=== PATIENT | female | born 1970 | race Caucasian/White ===

== ENCOUNTER → 2025-01-11 | Outpatient (CLI) | payer OTHER, SELFPAY ==
--- OUTSIDE RECORDS SUMMARY | 2024-11-29 10:57 | XMS RPT_ITS ---
Author Name Auto Generated Organization OHIP Care Team Providers Care Plateman Name Role Phone ANDREI SOTO Primary Care Unavailable VACCANDREI KUNZ Consulting Unavailable VACCANDREI KUNZ Attending Unavailable VACCANDREI KUNZ Admitting Unavailable PROVIDER, UNKNOWN Consulting Unavailable PROVIDER, UNKNOWN Consulting Unavailable PROVIDER, UNKNOWN Consulting Unavailable KRISTYK TOSIN M Attending Unavailable VACCARIELLO, ANDREI Consulting Unavailable ROZUK TOSIN M Admitting Unavailable ROZUK, TOSIN M Primary Care Unavailable PROVIDER, UNKNOWN Consulting Unavailable PROVIDER, UNKNOWN Consulting Unavailable PROVIDER, UNKNOWN Consulting Unavailable VACCJOAQUINA ANDREI Primary Care Unavailable VACCARIPALMA, ANDREI Consulting Unavailable VACCJOAQUINA, ANDREI Attending Unavailable VACCARIELLO, ANDREI Admitting Unavailable PROVIDER, UNKNOWN Consulting Unavailable PROVIDER, UNKNOWN Consulting Unavailable PROVIDER, UNKNOWN Consulting Unavailable [facility] Attending Unavailable PROBLEMS No Problem Records Found PROCEDURES No Procedure Records Found RESULTS ALBUMIN, RANDOM URINE W/CREATININE Collected: 06/29/2024 9:09 AM Status: F Source: [employer] TYPE CODE TESTS RESULT OUT OF RANGE REFERENCE UNITS LAB [id number] CREATININE, RANDOM URINE 269 Normal 20-275 mg/dL LAB [id number] ALBUMIN, URINE 1.2 Normal See Note: mg/dL Result Comment: Reference Ra nge: Reference Range Not established LAB [id number] ALBUMIN/CRE ATININE RATIO, RANDOM URINE 4 Normal <30 mg/g creat Result Comment: The ADA defines abnormalities in albumin excretion as follows: Albuminuria Category Result (mg/g creatinine) Normal to Mildly increased <30 Moderately increased 30-299 Severely increased > OR = 300 The ADA recommends that at least two of three specimens collected within a 3-6 month period be abnormal before considering a patient to be within a diagnostic category. Performed By: #### [id number] #### [facility] [address], [address] [place] [address] Loader Demolder: Abundio Jimenez MD LIPID PANEL, STANDARD Collected: 05/17/2024 9:17 AM Status: F Source: [employer] TYPE CODE TESTS RESULT OUT OF RANGE REFERENCE UNITS LAB [id number] CHOLESTEROL, TOTAL 185 Normal <200 mg/dL LAB [id number] HDL CHOLESTEROL 57 Normal > OR = 50 mg/dL LAB [id number] TRIGLYCERIDES 103 Normal <150 mg/dL LAB [id number] LDL-CHOLESTEROL 108 High mg/dL (calc) Result Comment: Reference ra nge: <100 Desirable range <100 mg/dL for primary prevention; <70 mg/dL for patients with CHD or diabetic patients with > or = 2 CHD risk factors. LDL-C is now calculated using the Andrez-Gudelia calculation, which is a validated novel method providing better accuracy than the Friedewald equation in the estimation of LDL-C. Andrez REYES et al. GENET. 2013;310(19): 9301-1978 (http://education.REBIScan.Mantex/faq/AKL313) LAB [id number] CHOL/HDLC RATIO 3.2 Normal <5.0 (calc) LAB [id number] NON HDL CHOLESTEROL 128 Normal <130 mg/dL (calc) Result Comment: For patients with diabetes plus 1 major ASCVD risk factor, treating to a non-HDL-C goal of <100 mg/dL (LDL-C of <70 mg/dL) is considered a therapeutic option. Performed By: #### 152, 7156 7, 63981, 6399, 92312, 7600 #### [facility] [address], [address] [place] [phone] Loader Demolder: Abundio Jimenez MD COMPREHENSIVE METABOLIC PANEL Collected : 05/17/2024 9:17 AM Status: F Source: [facility] TYPE CODE TESTS RESULT OUT OF RANGE REFERENCE UNITS LAB [id number] GLUCOSE 93 Normal 65-99 mg/dL Result Comment: Fasting reference interval LAB [id number] UREA NITROGEN (BUN) 17 Normal 7-25 mg/dL LAB [id number] CREATININE 0.71 Normal 0.50-1.03 mg/dL LAB [id number] EGFR 103 Normal > OR = 60 mL/min/1 .73m2 LAB [id number] BUN/CREATININE RATIO SEE NOTE: 6- (calc) Result Comment: Not Reported : BUN and Creatinine are within reference range. LAB [id number] SODIUM 142 Normal 135-146 mmol/L LAB [id number] POTASSIUM 4.1 Normal 3.5-5.3 mmol/L LAB [id number] CHLORIDE 106 Normal 98-110 mmol/L LAB [id number] CARBON DIOXIDE 28 Normal 20-32 mmol/L LAB [id number] CALCIUM 9.1 Normal 8.6-10.4 mg/dL LAB [id number] PROTEIN, TOTAL 7.0 Normal 6.1-8.1 g/dL LAB [id number] ALBUMIN 4.3 Normal 3.6-5.1 g/dL LAB [id number] GLOBULIN 2.7 Normal 1.9-3.7 g/dL (calc) LAB [id number] ALBUMIN/GLOBUL IN RATIO 1.6 Normal 1.0-2.5 (calc) LAB [id number] BILIRUBIN, TOTAL 0.4 Normal 0.2-1.2 mg/dL LAB [id number] ALKALINE PHOSPHATASE 48 Normal 37-153 U/L LAB [id number] AST 13 Normal 10-35 U/L LAB [id number] ALT 10 Normal 6-29 U/L Performed By: #### 496, 3612 7, 99450, 8899, 09363, 4390 #### [facility] [address] , [address] [place] [address] Loader Demolder: Abundio Jimenez MD CBC (INCLUDES DIFF/PLT) Collected: 06/2024 9:17 AM Status: F Source: [facility] TYPE CODE TESTS RESULT OUT OF RANGE REFERENCE UNITS LAB [id number] WHITE BLOOD CELL COUNT 6.7 Normal 3.8-10.8 Thousand /uL LAB [id number] RED BLOOD CELL COUNT 4.95 Normal 3.80-5.10 Million/ uL LAB [id number] HEMOGLOBIN 13.2 Normal 11.7-15.5 g/dL LAB [id number] HEMATOCRIT 42.0 Normal 35.0-45.0 % LAB [id number] MCV 84.8 Normal 80.0-100.0 fL LAB [id number] MCH 26.7 Low 27.0-33.0 pg LAB [id number] MCHC 31.4 Low 32.0-36.0 g/dL Result Comment: For adults, a slight decrease in the calculated MCHC value (in the range of 30 to 32 g/dL) is most likely not clinically significant; however, it should be interpreted with caution in correlation with other red cell parameters and the patient's clinical condition. LAB [id number] RDW 13.0 Normal 11.0-15.0 % LAB [id number] PLATELET COUNT 221 Normal 140-400 Thousand /uL LAB [id number] MPV 10.8 Normal 7.5-12.5 fL LAB [id number] ABSOLUTE NEUTROPHILS 3732 Normal 7741-0798 cells/uL LAB [id number] ABSOLUTE LYMPHOCYTES 2372 Normal 850-3900 cells/uL LAB [id number] ABSOLUTE MONOCYTES 348 Normal 200-950 cells/uL LAB [id number] ABSOLUTE EOSINOPHILS 188 Normal 15-500 cells/uL LAB [id number] ABSOLUTE BASOPHILS 60 Normal 0-200 cells/uL LAB [id number] NEUTROPHILS 55.7 Normal % LAB [id number] LYMPHOCYTES 35.4 Normal % LAB [id number] MONOCYTES 5.2 Normal % LAB [id number] EOSINOPHILS 2.8 Normal % LAB [id number] BASOPHILS 0.9 Normal % Performed By: #### 496, 3452 7, 35961, 6399, 59208, 7600 #### [facility] [place] [address] [facility], [address] [place] [address] Loader Demolder: Abundio Jimenez MD VITAMIN B12 Collected: 5 9:17 AM Status: F Source: [facility] TYPE CODE TESTS RESULT OUT OF RANGE REFERENCE UNITS LAB [id number] VITAMIN B12 1471 High 200-1100 pg/mL Performed By: #### 496, 5592 7, 76302, 6399, 79886, 7600 #### [facility] [address], [address] [place] [phone] Loader Demolder: Abundio Jimenez MD TSH W/REFLEX TO FT4 Collected: 05/17/19 9:17 AM Status: F Source: [facility] TYPE CODE TESTS RESULT OUT OF RANGE REFERENCE UNITS LAB [id number] TSH W/REFLEX TO FT4 1.39 Normal mIU/L Result Comment: Reference Ra nge > or = 20 Years 0.40-4.50 Ranges First trimester 0.26-2.66 Second trimester 0.55-2.73 Third trimester 0.43-2.91 Performed By: #### 496, 3612 7, 97463, 6399, 09819, 7600 #### [facility] [address], [address] [place], [place] [address] Loader Demolder: Abundio Jimenez MD VITAMIN D,25-OH,TOTAL,IA Collected: 06/2024 9:17 AM Status: F Source: [employer] TYPE CODE TESTS RESULT OUT OF RANGE REFERENCE UNITS LAB [id number] VITAMIN D,25-OH,TOT AL,IA 102 High 30-100 ng/mL Result Comment: Vitamin D St atus 25-OH Vitamin D: Deficiency: <20 ng/mL Insufficiency: 20 - 29 ng/mL Optimal: > or = 30 ng/mL For 25-OH Vitamin D testing on patients on D2-supplementation and patients for whom quantitation of D2 and D3 fractions is required, the QuestAssureD(TM) 25-OH VIT D, (D2,D3), LC/MS/MS is recommended: order code [id number] (patients >2yrs). See Note 1 Note 1 For additional information, please refer to http://education.REBIScan.Mantex/faq/DKH453 (This link is being provided for informational/ educational purposes only.) Performed By: #### 496, 3612 7, 59984, 6399, 96280, 7600 #### [facility] [address], [address] [place] [phone] Loader Demolder: Abundio Jimenez MD HEMOGLOBIN A1C Collected: 9:17 AM Status: F Source: [employer] TYPE CODE TESTS RESULT OUT OF RANGE REFERENCE UNITS LAB [id number] HEMOGLOBIN A1c 5.7 High <5.7 % of total Hgb Result Comment: For someone without known diabetes, a hemoglobin A1c value between 5.7% and 6.4% is consistent with prediabetes and should be confirmed with a follow-up test. For someone with known diabetes, a value <7% indicates that their diabetes is well controlled. A1c targets should be individualized based on duration of diabetes, age, comorbid conditions, and other considerations. This assay result is consistent with an increased risk of diabetes. Currently, no consensus exists regarding use of hemoglobin A1c for diagnosis of diabetes for children. Performed By: #### 496, 3612 7, 61978, 8930, 70864, 3420 #### [facility] [address], [address] [place] [phone] Loader Demolder: Abundio Jimenez MD 3D MAMM UNILAT LT DIAGNOSTIC Observed: 1 06/06/2023 10:56 AM Status: F Source: [place] [address] Patient: LUCAS MAN Phone#: : 1970 Age: 53 Gender: F Pt. Type: Out Account: [id number] [place] [facility] [place] Ordering: ANDREI SOTO Exam Date: 04/05/2024/10:44 Family Phys: Charge Code: [id number] Physician: Hardin Order #: [id number] Dose#: PROCEDURE: LEFT DIAGNOSTIC BREAST TOMOSYNTHESIS MAMMOGRAM WITH CAD COMPARISON: [facility], BILAT SCREENING, 02/23/2020, 17:00. [facility], 3D BILAT SCREEN, 04/03/2021, 11:23. [facility], 3D BILAT SCREEN, 04/02/2024, 12:56. INDICATIONS: Abnormal mammogram. BREAST COMPOSITION: Scattered areas fibroglandular density. FINDINGS: DIAGNOSTIC CATEGORY 1--NEGATIVE: LEFT BREAST: No significant suspicious finding. The focal asymmetry does not persist with spot compression, consistent with super position of glandular tissue. RECOMMENDATIONS: ROUTINE MAMMOGRAM AND CLINICAL EVALUATION IN 12 MONTHS. PLEASE NOTE: A NORMAL MAMMOGRAM DOES NOT EXCLUDE THE POSSIBILITY OF BREAST CANCER. A CLINICALLY SUSPICIOUS PALPABLE LUMP SHOULD BE BIOPSIED. THIS FACILITY UTILIZES A REMINDER SYSTEM TO ENSURE THAT ALL PATIENTS RECEIVE REMINDER LETTERS FOR APPOINTMENTS. THIS INCLUDES REMINDERS FOR ROUTINE MAMMOGRAMS, DIAGNOSITC MAMMOGRAMS, OR OTHER BREAST IMAGING INTERVENTIONS WHEN APPROPRIATE. THIS PATIENT WILL BE PLACED IN THE APPROPRIATE REMINDER SYSTEM. Dictated by: Elisha Ellis MD on 04/05/2024 at 11:06 Approved by: Elisha Ellis MD on 04/05/2024 at 11:07 3D MAMM BILAT SCREEN Observed: 4 1:14 PM Status: F Source: [place] [address] Patient: LUCAS MAN Phone#: : 1970 Age: 53 Gender: F Pt. Type: Out Account: [id number] [place] [facility] [place] Ordering: ANDREI SOTO Exam Date: 04/02/2024/12:56 Family Phys: Charge Code: [id number] Physician: Hardin Order #: [id number] Dose#: PROCEDURE: BILATERAL SCREENING BREAST TOMOSYNTHESIS MAMMOGRAM WITH CAD COMPARISON: [facility], 3D BILAT SCREEN, 04/03/2021, 11:23. [facility], BILAT SCREENING, 02/23/2020, 17:00. INDICATIONS: Screening. BREAST COMPOSITION: Scattered areas fibroglandular density. FINDINGS: DIAGNOSTIC CATEGORY 0--INCOMPLETE: NEED ADDITIONAL IMAGING EVALUATION. RIGHT BREAST: No significant suspicious finding. No significant change has occurred. LEFT BREAST: FOCAL ASYMMETRY (finding without convex borders usually visible on two orthogonal views), characterized by spiculated suspicious morphology, mid-breast depth, 2 o'clock position, and 9 x 12 x 23 mm size. RECOMMENDATIONS: ADDITIONAL MAMMOGRAPHIC VIEWS REQUIRED: LEFT BREAST --We will call the patient back for additional views and issue an addendum report. PLEASE NOTE: A NORMAL MAMMOGRAM DOES NOT EXCLUDE THE POSSIBILITY OF BREAST CANCER. A CLINICALLY SUSPICIOUS PALPABLE LUMP SHOULD BE BIOPSIED. THIS FACILITY UTILIZES A REMINDER SYSTEM TO ENSURE THAT ALL PATIENTS RECEIVE REMINDER LETTERS FOR APPOINTMENTS. THIS INCLUDES REMINDERS FOR ROUTINE MAMMOGRAMS, DIAGNOSITC MAMMOGRAMS, OR OTHER BREAST IMAGING INTERVENTIONS WHEN APPROPRIATE. THIS PATIENT WILL BE PLACED IN THE APPROPRIATE REMINDER SYSTEM. Dictated by: Tosin Falcon MD on 04/02/2024 at 14:12 Approved by: Tosin Falcon MD on 04/02/2024 at 14:22 ALLERGIES DATE TYPE / CODE NAME / CODE REACTION SEVERITY SOURCE Miscellaneous Allergy/[id number](SNOM ED CT) No Known Allergies Moderate (Severity Modifier) (Qualifier Value) [facility] ENCOUNTERS ADMIT/DISCHARGE ACCOUNT NUMBER ADMITTING ENCOUNTER CLASS LOCATION SOURCE 11/29/2024/ 5 [id number] ANDREI SOTO Ambulatory Building:[facility] 05/17/2024 [id number] Ambulatory Building:[facility] 04/05/2024/ 4 [id number] TOSIN FALCON Ambulatory Building:[facility] 04/02/2024/ 4 [id number] ANDREI SOTO Ambulatory Building:[facility] PAYERS ENCOUNTER GUARANTOR PAYER SUBSCRIBER SOURCE 11/29/2024 LUCAS Mitesh ARMENTAJORDANHDOB: [id number] [address] [address]Wtj: () Primary Insurance:[employer] OUTPATIENTPolicy Number: [id number] Date:Plan Name:A2 YANELI LUUHDOB: [id number] [place], [place] [id number] [facility] 04/05/2024 LUCASWILMER ARMENTAJORDANHDOB: [id number] [address] [address]Egv: () Primary Insurance:[facility] OUTPATIENTPolicy Number: [id number] Date:Plan Name:A2 YANELI LUUHDOB: [id number] [place], [place] [id number] [facility] 04/02/2024 LUCAS LUUHDOB: [id number] [address], [place] [address]Lci: () Primary Insurance:[facility] OUTPATIENTPolicy Number: [id number] Date:Plan Name:Hayden LUUHDOB: [id number] [place], [place] [id number] [facility]
[2025-01-11 15:32] LABS: AST(SGOT) 15 U/L (<=31); Alanine Aminotransfer ALT/SGPT 10 U/L (<=34); Albumin, Serum 4.2 g/dL (3.5-5.0); Alkaline Phosphatase 47 U/L (35-104); Anion Gap 13 (5-15); BUN 18 mg/dL (4-19); BUN/Creat Ratio 23.4 RATIO (10-20); Calcium,Total 9.7 mg/dL (7.6-11.0); Carbon Dioxide 22.4 mmol/L (21.0-32.0); Chloride 104 mmol/L (98-108); Globulin 3.1 g/dL (2.2-4.2); Glucose 91 mg/dL (70-99); Magnesium 2.2 mg/dL (1.5-2.2); Potassium 4.0 mmol/L (3.3-5.1)
== END | disposition home or self-care (01) ==
LOC: LAB 11:50
PROVIDERS: PCP Family Medicine; Referring Provider Internal Medicine Cardiovascular Disease; Visit Provider Internal Medicine Cardiovascular Disease
DX: I95.9 Hypotension, unspecified (principal); R42 Dizziness and giddiness; I51.7 Cardiomegaly
CPT/HCPCS: 36415; 80053; 83735; 84443

== ENCOUNTER → 2025-01-31 | Outpatient (CLI) | payer OTHER, SELFPAY ==
--- NOTE | 2025-01-31 11:40 | STRESSREP_ITS ---
Stress Test Report Date: 01/31/2025 Procedure: Exercise tolerance test Indications: Dizziness Consent: Per the patient Procedure: The patient exercised on a Wilmar protocol for 8 minutes achieving a peak heart rate of 169 bpm (100% predicted maximal heart rate) with a peak blood pressure 142/84 mmHg and a peak MET capacity of approximately 10.1 MET's. The baseline ECG demonstrated sinus rhythm. The peak exercise ECG showed sinus tachycardia with no ischemic ST changes. Occasional PVCs noted during exercise and in recovery. The functional capacity was considered very good. The patient had no complaints of chest discomfort during exercise or recovery. The examination was discontinued secondary to target heart rate being achieved. Impression: 1. Technically adequate (percent predicted maximal heart rate greater than 85%) exercise tolerance test. Good functional capacity 2. Peak exercise ECG with no ischemic changes 3. Occasional PVCs pretest, with exercise and in recovery This note was generated with [employer] software. It may contain incorrect words, spelling, and punctuation that were not noted in checking the note before signing.
== END | disposition home or self-care (01) ==
LOC: CVS 10:56
PROVIDERS: PCP Family Medicine; Referring Provider Internal Medicine Cardiovascular Disease; Visit Provider Internal Medicine Cardiovascular Disease
DX: R94.31 Abnormal electrocardiogram [ECG] [EKG] (principal); I07.1 Rheumatic tricuspid insufficiency; I51.7 Cardiomegaly
CPT/HCPCS: 93017